=== PATIENT | male | born 1955 | race Caucasian/White ===

== ENCOUNTER 2017-12-02 10:48 | Outpatient (CLI) | payer OTHER | END 2017-12-02 12:48 | disposition home or self-care (01) | LOC: ECT 10:48 | DX: F33.3 Major depressive disorder, recurrent, severe with psychotic symptoms (principal); F90.9 Attention-deficit hyperactivity disorder, unspecified type; E11.22 Type 2 diabetes mellitus with diabetic chronic kidney disease; N18.3 Chronic kidney disease, stage 3 (moderate); E78.5 Hyperlipidemia, unspecified ==

== ENCOUNTER 2017-12-07 06:18 | Outpatient (RCR) | payer OTHER ==
[~2017-12-07] VITALS: Ht 190.5 cm; Wt 121.1 kg
[2017-12-07] MEDS ORDERED: Succinylcholine 20mg/ml 10ml vial ONE (06:19)
[2017-12-07] MEDS ORDERED: NS 500ML ONE (06:19)
[2017-12-07] MEDS ORDERED: Methohexital Sodium Syr 100mg/10ml IVP ONE (06:19)
[2017-12-07] MEDS ORDERED: Midazolam 2mg/2ml Inj ONE (06:19)
[2017-12-07] MEDS ORDERED: Atropine Sulfate 0.4mg/ml inj IVP PRN (08:30)
[2017-12-07] MEDS ORDERED: Sodium Chloride 500ML 500 ML IV ONE (08:30)
[2017-12-07 09:12] VITALS: BP 121/60
[2017-12-07 09:38] VITALS: BP 130/66
[2017-12-07 09:43] VITALS: BP 133/70
[2017-12-07 09:48] VITALS: BP 127/61
[2017-12-07 09:53] VITALS: BP 136/82
[2017-12-07 13:46] VITALS: BP 121/60
[2017-12-09] MEDS ORDERED: Succinylcholine 20mg/ml 10ml vial ONE (08:00)
[2017-12-09] MEDS ORDERED: NS 500ML ONE (08:00)
[2017-12-09] MEDS ORDERED: Methohexital Sodium Syr 100mg/10ml IVP ONE (08:00)
[2017-12-09] MEDS ORDERED: Midazolam 2mg/2ml Inj ONE (08:00)
[2017-12-09 08:43] VITALS: BP 113/61
[2017-12-09] MEDS ORDERED: Sodium Chloride 500ML 500 ML IV ONE (08:56)
[2017-12-09 09:00] VITALS: BP 125/54
[2017-12-09 09:05] VITALS: BP 131/63
[2017-12-09 09:10] VITALS: BP 127/69
[2017-12-09 09:15] VITALS: BP 134/72
[2017-12-09 09:20] VITALS: BP 125/65
[2017-12-14] MEDS ORDERED: Midazolam 2mg/2ml Inj ONE (07:00)
[2017-12-14] MEDS ORDERED: Methohexital Sodium Syr 100mg/10ml IVP ONE (07:00)
[2017-12-14] MEDS ORDERED: NS 500ML ONE (07:00)
[2017-12-14] MEDS ORDERED: Succinylcholine 20mg/ml 10ml vial ONE (07:00)
[2017-12-14 08:50] VITALS: BP 116/63
[2017-12-14] MEDS ORDERED: Sodium Chloride 500ML 500 ML IV ONE (09:12)
[2017-12-14 09:15] VITALS: BP 148/49
[2017-12-14 09:20] VITALS: BP 126/51
[2017-12-14 09:25] VITALS: BP 128/59
[2017-12-14 09:30] VITALS: BP 141/67
== END 2017-12-15 | disposition home or self-care (01) ==
LOC: ECT 06:18
DX: F33.3 Major depressive disorder, recurrent, severe with psychotic symptoms (principal)
CPT/HCPCS: 90870; J0330; J2250; J7040

== ENCOUNTER 2017-12-16 07:00 | Outpatient (RCR) | payer OTHER ==
[~2017-12-16] VITALS: Ht 190.5 cm; Wt 121.1 kg
[2017-12-16] MEDS ORDERED: Midazolam 2mg/2ml Inj ONE (07:01)
[2017-12-16] MEDS ORDERED: NS 500ML ONE (07:01)
[2017-12-16] MEDS ORDERED: Succinylcholine 20mg/ml 10ml vial ONE (07:01)
[2017-12-16] MEDS ORDERED: Methohexital Sodium Syr 100mg/10ml IVP ONE (07:01)
[2017-12-16 09:01] VITALS: BP 115/58
[2017-12-16] MEDS ORDERED: Sodium Chloride 500ML 500 ML IV ONE (09:26)
[2017-12-16 09:30] VITALS: BP 120/62
[2017-12-16 09:35] VITALS: BP 122/56
[2017-12-16 09:40] VITALS: BP 131/54
[2017-12-16 09:45] VITALS: BP 126/68
[2017-12-19] MEDS ORDERED: Succinylcholine 20mg/ml 10ml vial ONE (07:00)
[2017-12-19] MEDS ORDERED: Methohexital Sodium Syr 100mg/10ml IVP ONE (07:00)
[2017-12-19] MEDS ORDERED: Midazolam 2mg/2ml Inj ONE (07:00)
[2017-12-19] MEDS ORDERED: NS 500ML ONE (07:00)
[2017-12-19 09:07] VITALS: BP 125/63
[2017-12-19] MEDS ORDERED: Sodium Chloride 500ML 500 ML IV ONE (09:18)
[2017-12-19 09:20] VITALS: BP 129/60
[2017-12-19 09:25] VITALS: BP 129/60
[2017-12-19 09:30] VITALS: BP 123/56
[2017-12-19 09:35] VITALS: BP 126/53
[2017-12-21] MEDS ORDERED: Succinylcholine 20mg/ml 10ml vial ONE (07:00)
[2017-12-21] MEDS ORDERED: NS 500ML ONE (07:00)
[2017-12-21] MEDS ORDERED: Midazolam 2mg/2ml Inj ONE (07:00)
[2017-12-21] MEDS ORDERED: Methohexital Sodium Syr 100mg/10ml IVP ONE (07:00)
[2017-12-21 08:48] VITALS: BP 123/50
[2017-12-21 09:00] VITALS: BP 148/50
[2017-12-21] MEDS ORDERED: Sodium Chloride 500ML 500 ML IV ONE (09:00)
[2017-12-21 09:05] VITALS: BP 139/50
[2017-12-21 09:10] VITALS: BP 158/69
[2017-12-21 09:15] VITALS: BP 140/80
[2017-12-23] MEDS ORDERED: Succinylcholine 20mg/ml 10ml vial ONE (07:00)
[2017-12-23] MEDS ORDERED: Midazolam 2mg/2ml Inj ONE (07:00)
[2017-12-23] MEDS ORDERED: Methohexital Sodium Syr 100mg/10ml IVP ONE (07:00)
[2017-12-23] MEDS ORDERED: NS 500ML ONE (07:00)
[2017-12-23 08:56] VITALS: BP 125/63
[2017-12-23] MEDS ORDERED: Sodium Chloride 500ML 500 ML IV ONE (09:09)
[2017-12-23 09:10] VITALS: BP 146/77
[2017-12-23 09:15] VITALS: BP 143/68
[2017-12-23 09:20] VITALS: BP 140/76
[2017-12-23 09:25] VITALS: BP 148/69
[2017-12-26] MEDS ORDERED: Midazolam 2mg/2ml Inj ONE (07:01)
[2017-12-26] MEDS ORDERED: NS 500ML ONE (07:01)
[2017-12-26] MEDS ORDERED: Succinylcholine 20mg/ml 10ml vial ONE (07:01)
[2017-12-26] MEDS ORDERED: Methohexital Sodium Syr 100mg/10ml IVP ONE (07:01)
[2017-12-26 08:43] VITALS: BP 115/59
[2017-12-26] MEDS ORDERED: Sodium Chloride 500ML 500 ML IV ONE (09:03)
[2017-12-26] MEDS ORDERED: Atropine Sulfate 0.4mg/ml inj IVP PRN (09:03)
[2017-12-26 09:05] VITALS: BP 113/64
[2017-12-26 09:10] VITALS: BP 123/61
[2017-12-26 09:15] VITALS: BP 129/74
[2017-12-26 09:20] VITALS: BP 127/71
[2017-12-28] MEDS ORDERED: NS 500ML ONE (07:00)
[2017-12-28] MEDS ORDERED: Methohexital Sodium Syr 100mg/10ml IVP ONE (07:00)
[2017-12-28] MEDS ORDERED: Midazolam 2mg/2ml Inj ONE (07:00)
[2017-12-28] MEDS ORDERED: Succinylcholine 20mg/ml 10ml vial ONE (07:00)
[2017-12-28 08:37] VITALS: BP 127/65
[2017-12-28 09:00] VITALS: BP 147/78
[2017-12-28 09:05] VITALS: BP 154/79
[2017-12-28 09:10] VITALS: BP 135/76
[2017-12-28 09:15] VITALS: BP 133/81
[2017-12-28] MEDS ORDERED: Atropine Sulfate 0.4mg/ml inj IVP PRN ×2 (14:45)
[2017-12-30] MEDS ORDERED: Midazolam 2mg/2ml Inj ONE (07:00)
[2017-12-30] MEDS ORDERED: Methohexital Sodium Syr 100mg/10ml IVP ONE (07:00)
[2017-12-30] MEDS ORDERED: Succinylcholine 20mg/ml 10ml vial ONE (07:00)
[2017-12-30] MEDS ORDERED: NS 500ML ONE (07:00)
[2017-12-30 08:35] VITALS: BP 127/63
[2017-12-30] MEDS ORDERED: Sodium Chloride 500ML 500 ML IV ONE (08:53)
[2017-12-30] MEDS ORDERED: Atropine Sulfate 0.4mg/ml inj IVP PRN (08:53)
[2017-12-30 08:55] VITALS: BP 130/60
[2017-12-30 09:00] VITALS: BP 132/54
[2017-12-30 09:05] VITALS: BP 135/54
[2017-12-30 09:10] VITALS: BP 138/62
[2018-01-02] MEDS ORDERED: Methohexital Sodium Syr 100mg/10ml IVP ONE (07:00)
[2018-01-02] MEDS ORDERED: Midazolam 2mg/2ml Inj ONE (07:00)
[2018-01-02] MEDS ORDERED: Succinylcholine 20mg/ml 10ml vial ONE (07:00)
[2018-01-02] MEDS ORDERED: NS 500ML ONE (07:00)
[2018-01-02 08:27] VITALS: BP 142/70
[2018-01-02] MEDS ORDERED: Sodium Chloride 500ML 500 ML IV ONE (08:44)
[2018-01-02 08:45] VITALS: BP 142/67
[2018-01-02 08:50] VITALS: BP 139/67
[2018-01-02 08:55] VITALS: BP 147/80
[2018-01-02 09:00] VITALS: BP 150/77
[2018-01-04] MEDS ORDERED: Midazolam 2mg/2ml Inj ONE (07:00)
[2018-01-04] MEDS ORDERED: NS 500ML ONE (07:00)
[2018-01-04] MEDS ORDERED: Succinylcholine 20mg/ml 10ml vial ONE (07:00)
[2018-01-04] MEDS ORDERED: Methohexital Sodium Syr 100mg/10ml IVP ONE (07:00)
[2018-01-04 09:03] VITALS: BP 147/80
[2018-01-04] MEDS ORDERED: Sodium Chloride 500ML 500 ML IV ONE (09:15)
[2018-01-04 09:20] VITALS: BP 140/70
[2018-01-04 09:25] VITALS: BP 136/65
[2018-01-04 09:30] VITALS: BP 140/48
[2018-01-04 09:35] VITALS: BP 138/59
[2018-01-06] MEDS ORDERED: NS 500ML ONE (06:00)
[2018-01-06] MEDS ORDERED: Midazolam 2mg/2ml Inj ONE (06:00)
[2018-01-06] MEDS ORDERED: Succinylcholine 20mg/ml 10ml vial ONE (06:00)
[2018-01-06] MEDS ORDERED: Methohexital Sodium Syr 100mg/10ml IVP ONE (06:00)
[2018-01-06 08:26] VITALS: BP 139/87
[2018-01-06 08:45] VITALS: BP 140/61
[2018-01-06] MEDS ORDERED: Sodium Chloride 500ML 500 ML IV ONE (08:48)
[2018-01-06 08:50] VITALS: BP 136/78
[2018-01-06 08:55] VITALS: BP 139/74
[2018-01-06 09:00] VITALS: BP 141/67
[2018-01-06 09:05] VITALS: BP 135/68
[2018-01-09] MEDS ORDERED: Succinylcholine 20mg/ml 10ml vial ONE (07:00)
[2018-01-09] MEDS ORDERED: Midazolam 2mg/2ml Inj ONE (07:00)
[2018-01-09] MEDS ORDERED: Methohexital Sodium Syr 100mg/10ml IVP ONE (07:00)
[2018-01-09] MEDS ORDERED: NS 500ML ONE (07:00)
[2018-01-09 09:12] VITALS: BP 146/75
[2018-01-09] MEDS ORDERED: Sodium Chloride 500ML 500 ML IV ONE (09:25)
[2018-01-09 09:30] VITALS: BP 142/73
[2018-01-09 09:35] VITALS: BP 143/58
[2018-01-09 09:40] VITALS: BP 136/58
[2018-01-09 09:45] VITALS: BP 136/67
[2018-01-09 09:55] VITALS: BP 134/59
[2018-01-11] MEDS ORDERED: Succinylcholine 20mg/ml 10ml vial ONE (07:00)
[2018-01-11] MEDS ORDERED: NS 500ML ONE (07:00)
[2018-01-11] MEDS ORDERED: Methohexital Sodium Syr 100mg/10ml IVP ONE (07:00)
[2018-01-11] MEDS ORDERED: Midazolam 2mg/2ml Inj ONE (07:00)
[2018-01-11 08:47] VITALS: BP 136/67
[2018-01-11] MEDS ORDERED: Sodium Chloride 500ML 500 ML IV ONE (09:00)
[2018-01-11 09:05] VITALS: BP 144/62
[2018-01-11 09:10] VITALS: BP 148/68
[2018-01-11 09:15] VITALS: BP 142/58
[2018-01-11 09:20] VITALS: BP 147/57
[2018-01-13 08:36] VITALS: BP 164/84
[2018-01-13] MEDS ORDERED: Sodium Chloride 500ML 500 ML IV ONE (08:49)
[2018-01-13 08:50] VITALS: BP 136/59
[2018-01-13 08:55] VITALS: BP 128/71
[2018-01-13 09:00] VITALS: BP 126/64
[2018-01-13 09:05] VITALS: BP 127/62
[2018-01-14] MEDS ORDERED: Midazolam 2mg/2ml Inj ONE (10:16)
[2018-01-14] MEDS ORDERED: Methohexital Sodium 500mg Vial IVP ONE (10:16)
[2018-01-14] MEDS ORDERED: Succinylcholine 20mg/ml 10ml vial ONE (10:16)
== END 2018-01-14 | disposition home or self-care (01) ==
LOC: ECT 07:00
DX: F33.3 Major depressive disorder, recurrent, severe with psychotic symptoms (principal)
CPT/HCPCS: 90870; J0330; J2250; J3490; J7040